=== PATIENT | female | born 1950 | race Native Hawaiian/Other Pacific Islander ===

== ENCOUNTER 2017-01-18 12:55 | Outpatient (CLI) | payer BC | END 2017-01-18 14:00 | disposition home or self-care (01) | LOC: MAMMO 12:55 | DX: Z12.31 Encounter for screening mammogram for malignant neoplasm of breast (principal) ==

== ENCOUNTER 2018-05-28 14:16 | Outpatient (CLI) | payer OTHER | END 2018-05-28 23:22 | disposition home or self-care (01) | LOC: RAD 14:16 | DX: M54.16 Radiculopathy, lumbar region (principal) ==

== ENCOUNTER 2020-01-22 08:54 | Outpatient (CLI) | payer OTHER | END 2020-01-22 18:59 | disposition home or self-care (01) | LOC: MAMMO 08:54 | PROVIDERS: ATTEND Nurse Practitioner Family | DX: N95.8 Other specified menopausal and perimenopausal disorders (principal); E55.9 Vitamin D deficiency, unspecified; Z12.31 Encounter for screening mammogram for malignant neoplasm of breast ==

== ENCOUNTER 2021-09-26 08:32 | Outpatient (CLI) | payer OTHER | END 2021-09-26 18:56 | disposition home or self-care (01) | LOC: CT 08:32 | PROVIDERS: ATTEND Internal Medicine | DX: R10.84 Generalized abdominal pain (principal); R11.2 Nausea with vomiting, unspecified; Z87.19 Personal history of other diseases of the digestive system; Z09 Encounter for follow-up examination after completed treatment for conditions other than malignant neoplasm | CPT/HCPCS: 36415; 82565; 84520; Q9963 ==

== ENCOUNTER 2021-10-19 09:20 | Outpatient (CLI) | payer OTHER | END 2021-10-19 18:56 | disposition home or self-care (01) | LOC: US 09:20 | PROVIDERS: ATTEND Internal Medicine | DX: R10.84 Generalized abdominal pain (principal); R11.0 Nausea ==